=== PATIENT | male | born 1950 | race Caucasian/White ===

== ENCOUNTER 2020-01-25 09:39 | Day surgery (SDC) | payer OTHER, SELFPAY ==
[2020-01-21 09:52] LABS: CALCIUM 9.1 mg/dL (8.4-11.0); CREATININE 0.81 mg/dL (0.55-1.30); POTASSIUM 3.8 mmol/L (3.5-5.1)
[2020-01-21 09:57] LABS: PROTHROMBIN TIME 10.3 SECS (9.5-12.5)
[2020-01-21 10:20] LABS: BASOPHILS % (AUTO) 0.6 % (0.0-2.0); EOSINOPHILS # (AUTO) 0.2 K/uL (0.0-0.4); EOSINOPHILS % (AUTO) 3.7 % (0.0-4.0); HEMATOCRIT 47.3 % (36-54); HEMOGLOBIN 16.1 g/dL (14.0-18.0); LYMPHOCYTES # (AUTO) 1.7 K/uL (1.0-5.5); LYMPHOCYTES % (AUTO) 27.8 % (20.5-51.5); MEAN CORPUSCULAR HEMOGLOBIN 30 pg (27-31); MEAN CORPUSCULAR HGB CONC 34 % (32-36); MEAN CORPUSCULAR VOLUME 89 fL (79.0-98.0); MONOCYTES # (AUTO) 0.7 K/uL (0.0-1.0); MONOCYTES % (AUTO) 11.7 % (1.7-9.3); NEUTROPHILS # (AUTO) 3.4 K/uL (1.8-7.7); NEUTROPHILS % (AUTO) 56.2 % (40.0-70.0); PLATELET COUNT (AUTO) 223 K/uL (130-430); RED BLOOD CELL COUNT(AUTO) 5.32 MIL/uL (4.2-6.2); RED CELL DISTRIBUTION WIDTH 13.6 % (9.0-15.0)
[2020-01-25 10:32] LABS: BILIRUBIN,URINE NEGATIVE (NEGATIVE); BLOOD, URINE NEGATIVE (NEGATIVE); CLARITY/URINE CLEAR (CLEAR); COLOR,URINE YELLOW (YELLOW); GLUCOSE,URINE NEGATIVE (NEGATIVE); KETONES,URINE NEGATIVE (NEGATIVE); LEUKOCYTE ESTERASE ,URINE NEGATIVE (NEGATIVE); NITRITE, URINE NEGATIVE (NEGATIVE); PH,URINE 5.5 (5.0-8.0); PROTEIN URINE NEGATIVE (NEGATIVE); UROBILINOGEN,URINE 0.2 (0.2-1.0)
[2020-01-25] MEDS ORDERED: POLYMYXIN 500,000/BACIT.10,000 UNITS in NS IRR 1 L IR ONE (12:04)
[2020-01-25] MEDS ORDERED: MEPERIDINE HCL/PF 25 MG/ML DISP.SYRIN IVP PRN (12:30)
[2020-01-25] MEDS ORDERED: hydrALAZINE HCL 20 MG/ML VIAL IVP PRN (12:30)
[2020-01-25] MEDS ORDERED: METOCLOPRAMIDE HCL 10 MG/2 ML VIAL IVP PRN (12:30)
[2020-01-25] MEDS ORDERED: ONDANSETRON HCL 4 MG/2 ML VIAL IVP PRN (12:30)
[2020-01-25] MEDS ORDERED: MIDAZOLAM HCL 2 MG/2 ML VIAL (VERSED) IVP PRN (12:30)
[2020-01-25] MEDS ORDERED: HYDROmorphone 1 MG INJ. 1 MG/ML AMPUL IVP PRN ×2 (12:30)
[2020-01-25] MEDS ORDERED: LABETALOL 100 MG/ 20ML VIAL IVP PRN (12:30)
[2020-01-25] MEDS ORDERED: LR 1,000 ML IV SCH (12:30)
[2020-01-25] MEDS ORDERED: BUPIVACAINE /PF 0.25% 30 ML VIAL INJ ONE (13:26)
[2020-01-25] MEDS ORDERED: DESFLURANE 15 MIN GAS INH ONE (13:26)
[2020-01-25] MEDS ORDERED: NEOSTIGMINE METHYLSULFATE 1 MG/ML, 10 ML VIAL ONE (13:26)
[2020-01-25] MEDS ORDERED: fentaNYL CITRATE/PF 100 MCG/2 ML AMP ONE (13:26)
[2020-01-25] MEDS ORDERED: CEFAZOLIN 2 GM IVPB PREMIX 50 ML IV ONE (13:26)
[2020-01-25] MEDS ORDERED: BUPIVACAINE /EPINEPHRINE/PF 0.25% 30 ML VIAL INJ ONE (13:26)
[2020-01-25] MEDS ORDERED: KETOROLAC TROMETHAMINE 30 MG VIAL ONE (13:26)
[2020-01-25] MEDS ORDERED: GLYCOPYRROLATE 0.2 MG/ML VIAL ONE (13:26)
[2020-01-25] MEDS ORDERED: MIDAZOLAM HCL 5 MG/ML VIAL (VERSED) IV ONE (13:26)
[2020-01-25] MEDS ORDERED: ROCURONIUM BROMIDE 10 MG/ML (ZEMURON) ONE (13:26)
[2020-01-25] MEDS ORDERED: PROPOFOL 200MG/ 20ML VIAL (DIPRIVAN) IV ONE (13:26)
[2020-01-25] MEDS ORDERED: LR 1,000 ML IV.SOLN IV ONE (13:26)
[2020-01-25] MEDS ORDERED: ONDANSETRON HCL 4 MG/2 ML VIAL ONE (13:26)
[2020-01-25 14:20] VITALS: BP_SYST 138
== END 2020-01-25 15:00 | disposition home or self-care (01) ==
LOC: SMU 09:39 → SDS 09:39
PROVIDERS: ATTEND Orthopaedic Surgery
DX: M75.101 Unspecified rotator cuff tear or rupture of right shoulder, not specified as traumatic (principal); M75.41 Impingement syndrome of right shoulder; I10 Essential (primary) hypertension; E11.9 Type 2 diabetes mellitus without complications; Z79.01 Long term (current) use of anticoagulants; Z79.899 Other long term (current) drug therapy
CPT/HCPCS: 23120; 23412; 23415; 23929; 64415; 71046; 76942; 80048; 81003; 85025; 85610; 85730; 93005; A4565; C1713; J0690; J1885; J2250; J2405; J2704; J2710; J3010; J3490 ×3; J7120; U0003